=== PATIENT | female | born 1955 | race Caucasian/White ===

== ENCOUNTER 2018-08-29 08:26 | Day surgery (SDC) | payer SELFPAY ==
[2018-08-18 09:39] VITALS: BMI 40.6
[2018-08-29 08:51] VITALS: BP 139/76; PULSE 81; RESP 18; TEMP 36.4; O2SAT 95; BMI 40.8
[2018-08-29 09:06] LABS: Bedside Glucose 112 mg/dL (70-110)
[2018-08-29 10:26] VITALS: BP 125/64; BP 139/76; PULSE 54; RESP 16; TEMP 36.3; O2SAT 98
--- NOTE | 2018-08-29 10:28 | OP.ENDO_ITS ---
08/29/2018 [place] [facility] Re : Colonoscopy procedure for Shannon Clark This procedure was performed on Wednesday, August 29, 2018. My impressions and recommendations are as follows: Impressions : - One 3 mm polyp in the rectum, removed with a hot snare. Complete resection. Polyp tissue not retrieved. - The entire examined colon is normal on direct and retroflexion views. Recommendations : - Discharge patient to home. - Resume previous diet. - Continue present medications. - Await pathology results. - Repeat colonoscopy in 5 years for surveillance based on personal history of colon cancer. My findings are described in the full procedure note, which is enclosed. If I can be of further assistance, please feel free to contact me at Doctor phone number(s): , Work: . Sincerely, Malachi Chew MD 08/29/2018 10:27:58 AM This report has been signed electronically.
[2018-08-29 10:30] VITALS: BP 126/66; BP 139/76; PULSE 55; RESP 16; O2SAT 99
[2018-08-29 10:35] VITALS: BP 125/69; BP 139/76; PULSE 56; RESP 16; O2SAT 98
[2018-08-29 10:41] VITALS: BP 136/67; BP 139/76; PULSE 54; RESP 16; TEMP 37.2; O2SAT 99
[2018-08-29 11:01] VITALS: BP 139/76
== END 2018-08-29 11:10 | disposition home or self-care (01) ==
LOC: EN 08:28 → AC 08:28
PROVIDERS: Family Provider Family Medicine; PCP Family Medicine; Referring Provider Surgery; Visit Provider Surgery
PROC: 0DJD8ZZ Inspection of Lower Intestinal Tract, Via Natural or Artificial Opening Endoscopic (ICD-10-PCS; CPT 45378; principal; 2018-08-29 09:40)
DX: Z12.11 Encounter for screening for malignant neoplasm of colon (principal); K62.1 Rectal polyp; E11.22 Type 2 diabetes mellitus with diabetic chronic kidney disease; I12.9 Hypertensive chronic kidney disease with stage 1 through stage 4 chronic kidney disease, or unspecified chronic kidney disease; N18.3 Chronic kidney disease, stage 3 (moderate); E78.00 Pure hypercholesterolemia, unspecified; Z79.82 Long term (current) use of aspirin; Z79.4 Long term (current) use of insulin; Z79.899 Other long term (current) drug therapy; Z78.0 Asymptomatic menopausal state; Z85.038 Personal history of other malignant neoplasm of large intestine; Z87.442 Personal history of urinary calculi; Z90.49 Acquired absence of other specified parts of digestive tract
CPT/HCPCS: 45385; 82962; J7120